=== PATIENT | female | born 1990 | race African-American/Black ===

== ENCOUNTER 2018-09-07 09:40 | Emergency (ER) | payer OTHER ==
[~2018-09-07] VITALS: Ht 157.5 cm; Wt 71.2 kg
[~2018-09-07 09:40] MED LIST: BENTYL10 MG ORAL; IBUPROFEN800 MG ORAL; NITROFURANTOIN100 M2 ORAL; NKM; TRAMADOL HCL50 MG ORAL; ZOFRAN4 MG ORAL
[2018-09-07 09:42] VITALS: BP 126/80
--- NOTE | 2018-09-07 09:52 | NUR ---
ED Nurse Note: Pt came in due to hardening/small lump on her right breasts below nipple x 2 weeks. Denies discharge.
[2018-09-07] MEDS ORDERED: IBUPROFEN600 MG ORAL (09:59)
--- NOTE | 2018-09-07 11:09 | Emergency Room Report ---
History of Present Illness General Chief Complaint: Skin Rash/Abscess Source: Patient Present Illness HPI 27-year-old female presents ED for evaluation. Patient complaining of pain to her right breast. Has been there for 2 weeks. Dull, 7 out of 10, nonradiating. Denies any discharge. Denies any hardness. Denies any fevers or chills. States she's been on her period of the last 5 days. Denies any prior episodes of pain. Currently not breast-feeding. No other aggravating relieving factors. Denies any other associated symptoms Allergies: Coded Allergies: No Known Allergies (Unverified , 11/12/14) Patient History Past Medical History: none Past Surgical History: none Pertinent Family History: none Social History: Denies: smoking, alcohol use, drug use Last Menstrual Period: 09/02/18 Now: No Immunizations: UTD Reviewed Nursing Documentation: PMH: Agreed; PSxH: Agreed Nursing Documentation-PMH Past Medical History: No Stated History Review of Systems All Other Systems: negative except mentioned in HPI Physical Exam Vital Signs Date Time Temp Pulse Resp B/P (MAP) Pulse Ox O2 Delivery O2 Flow Rate FiO2 09/07/18 09:42 98.1 16 126/80 100 Room Air 09/07/18 09:42 95 Sp02 EP Interpretation: reviewed, normal General Appearance: no apparent distress, alert, GCS 15, non-toxic Head: normocephalic Eyes: bilateral eye normal inspection, bilateral eye PERRL ENT: hearing grossly normal, normal pharynx, no angioedema, normal voice Neck: full range of motion, supple/symm/no masses Respiratory: chest non-tender, lungs clear, normal breath sounds, speaking full sentences Cardiovascular #1: normal inspection Gastrointestinal: normal inspection Rectal: deferred Genitourinary: no CVA tenderness Musculoskeletal: normal inspection Neurologic: alert, oriented x3, responsive, motor strength/tone normal, sensory intact, speech normal Psychiatric: judgement/insight normal, memory normal, mood/affect normal, no suicidal/homicidal ideation Skin: other - ribbon tier present - tenderness around nipple. some nodular noted. no induration/erythema/discharge Lymphatic: normal inspection Medical Decision Making Diagnostic Impression: Primary Impression: Breast pain in female ER Course Hospital Course 27 yo F presents to ED c/o pain to breast Differential diagnoses include: Cellulitis, dermatitis, insect bite, abscess Clinical course Patient placed on stretcher. After initial history, physical exam reveals a young female in no acute distress. [employer] present. There is some palpable tenderness around the nipple on the right breast. Feel somewhat nodular. No swelling or induration. No fluctuance. No gross abnormality. Consideration for abscess versus cellulitis versus fibrocystic changes. Symptoms do overlap with patient's period. Remote consideration for neoplasm however there is no family history. Patient is also 27 years old. Discussed these considerations with the patient. At this time we will treat pain with ibuprofen. No indication for antibiotics at this time. Patient will be referred to women's clinic for outpatient ultrasound. Safe for discharge close outpatient follow-up Diagnosis - breast pain in female stable and discharged to home with prescription for motrin. Instructed to followup with PMD/womens clinic. Instructed return to ED if symptoms recur or worsen Last Vital Signs Date Time Temp Pulse Resp B/P (MAP) Pulse Ox O2 Delivery O2 Flow Rate FiO2 09/07/18 09:42 98.1 95 16 126/80 100 Room Air Status: improved Disposition: HOME, SELF-CARE Condition: Stable Scripts Ibuprofen* (MOTRIN*) 600 Mg Tablet 600 MG ORAL Q8H PRN for For Pain, #30 TAB 0 Refills Prov: Fracisco Hall MD 09/07/18 [facility] Patient Instructions: Breast Tenderness, Fibrocystic Breast Changes, Easy-to- Read Fracisco Hall MD Sep 07, 2018 11:09
[2018-09-07 13:00] VITALS: BP 126/80
== END 2018-09-07 13:00 | disposition home or self-care (01) ==
LOC: EMR 09:54
DX: N64.4 Mastodynia (principal)
CPT/HCPCS: 99282